=== PATIENT | female | born 1985 | race Caucasian/White ===

== ENCOUNTER 2016-06-26 00:25 | Inpatient (IN) | payer OTHER ==
[~2016-06-26] VITALS: Ht 175.3 cm; Wt 91.2 kg
[2016-06-26] MEDS ORDERED: Carboprost 250 mCg/mL Inj IM ONE (07:14)
[2016-06-26] MEDS ORDERED: OMEP20CA11 PO (09:08)
[2016-06-26] MEDS ORDERED: CHOL5000 PO (09:08)
[2016-06-26] MEDS ORDERED: PREN-148 PO (09:09)
[2016-06-26] MEDS ORDERED: Lactated Ringer's 1,000 ML IV PRN (09:09)
[2016-06-26] MEDS ORDERED: Oxytocin 10 Unit/mL Inj IM PRN (09:10)
[2016-06-26] MEDS ORDERED: Methylergonovine 0.2 mg/mL Inj IM PRN (09:10)
[2016-06-26] MEDS ORDERED: Carboprost 250 mCg/mL Inj IM PRN (09:10)
[2016-06-26] MEDS ORDERED: Oxytocin 30 Units/500 mL LR 30 UNITS in IV Premix 1 EACH IV PRN ×3 (09:10→21:25)
[2016-06-26] MEDS ORDERED: Ondansetron 2 mg/mL 2 mL Inj IVPUSH PRN ×2 (09:10→11:30)
[2016-06-26] MEDS ORDERED: Hemorrhage Kit, Post Partum XX ONE (09:10)
[2016-06-26] MEDS ORDERED: Sodium Chloride LOK Flush 10 mL Syringe IVFLUSH PRN (09:10)
[2016-06-26] MEDS ORDERED: fentaNYL-PF 50 mCg/mL 2 mL Inj IVPUSH PRN (09:10)
[2016-06-26 09:36] LABS: Mean Corpuscular Hemoglobin 27.6 pg (27.0-35.0); Mean Corpuscular Volume 82.5 fL (81-100)
--- NOTE | 2016-06-26 10:06 | PCM.HPOB ---
Subjective Date of Service: Jun 26, 2016 Referring Provider: Admitting Physician: Gabo Cleary MD Primary Care Physician: Smith Long MD Attending Physician: Gaob Cleary MD Chief Complaint induction of labor History of Present History of Present Illness 31 year old female presents to the [facility] for elective induction of labor. Pt is currently at 40 weeks and 6 days with ALEXANDER by LMP of 06/20/16, ALEXANDER by 9 week US 06/23/2016. Pt has had an uncomplicated , pertinent PMH of abnormal PAP with Hx of HPV. OB History: (1), Para (0) Past Medical History Gynecologic History: Abnormal PAP with Hx of HPV Medical History: GERD Surgical History: jaw surgery 2015 - to widen maxilla. Hx Tobacco Use: No Smoking Status: Never Smoker Hx Alcohol Use: No Hx Substance Use: No Past Family History Living Arrangement: with Family Review of Systems Constitutional: Y: Chills, Dizziness, Fever Eyes: Denies: Vision Changes Cardiovascular: Denies: Chest Pain, Palpitations Respiratory: Denies: Cough Gastrointestinal: Denies: Constipation, Diarrhea, Nausea, Vomiting Genitourinary: Denies: Dysuria Neurological: Denies: Confusion, Dizziness, Numbness, Seizures Medications Home medications Omeprazole, Allergy Coded Allergies: No Known Allergies (Unverified , 06/26/16) Exam Vital Signs BP 130/85, HR 89, RR 18, Temp 37.1 3-4cm dialated, 60-70% effaced, -2 station Tirado score 8 Exam FHR 135, moderate variability, category 1 tracing Constitutional: Well-developed, Well-nourished HEENT: Atraumatic, EOMI Lungs: Clear to Auscultation, Normal Air Movement Heart: Exam Unremarkable, Regular Rate/Rhythm Abdomen: Gravid Extremities: Pulses Palpable x4, Edema (1 + pitting lower ext Bilat) Neurological/Psychiatric: Alert, Oriented X3, Cooperative Neuro: Grossly Neurologically Intact Labs/Diagnostics Labs varicella, immune, GBS negative, Rubella immune, RPR - non reactive, GC/ Chlamydia negative Maternal Blood Type: A (positive) Hx Rho(D) Immune Globulin: No Group B Strep Results: Negative Rubella: Immune Lab History: Negative for: Hx Gonorrhea, Hx HIV, Hx Herpes, Hx Syphilis OB Intrapartum Assessment/Plan Assessment 31 female scheduled induction of labor Problems: (1) Elective induction of labor planned Plan: Expectant management, anticipate vaginal delivery today or tomorrow. Status: Acute ICD Code: [id number] Pain Evaluation: Adequate Pain Control RAVEN QUIROZ DO Jun 26, 2016 07:07
[2016-06-26] MEDS: Lactated Ringer's 1,000 ML IV SCH ×3 (11:13→18:37)
[2016-06-26] MEDS ORDERED: Lactated Ringer's 500 ML IV ONE (11:27)
[2016-06-26] MEDS ORDERED: EPHEDrine Sulfate 50 mg/mL Inj IVPUSH PRN (11:30)
[2016-06-26] MEDS ORDERED: fentaNYL 2 mCg/mL-Bupiv 0.125% 100 ML EPIDURAL SCH (11:30)
[2016-06-26] MEDS ORDERED: Atropine 1 mg/10 mL (Code) Syringe IVPUSH PRN (11:30)
--- NOTE | 2016-06-26 11:31 | PCM.HPANE ---
Patient Data Surgeon Admitting Provider:Gabo Cleary MD Attending Provider:Gabo Cleary MD Primary Care Physician:Smith Long MD Other Provider:Leonardo Weston Anesthesia Reason for Visit Induction INDUCTION Ht/WT & BMI Body Mass Index Allergies Coded Allergies: No Known Allergies (Unverified , 06/26/16) Past Anesthesia History Anesthesia History: Denies:: Abnormal Airway, Difficult Intubation Diabetes History Hx Diabetes?: No Medications Hypertension Medication: No Home Meds Incl Beta Mac: No Reported Medications Vit No.124/Iron/FA ( Vitamin Tablet)27 Mg Iron-800 Mcg Tablet1 Each PO DAILY 06/26/16 Cholecalciferol (Vitamin D3) (Vitamin D3)5,000 Unit Capsule5,000 Unit PO 2X weekly 06/26/16 Omeprazole 20 Mg Capsule.dr20 Mg PO DAILY HEARTBURN Ref 0 06/26/16 History History of ENT Problems?: No Hx of Heart Problems?: No Hx of Respiratory Problem?: No Hx Neurologic Problems?: No Hx of GI Problems?: No Hx of Problems?: No HX of Peritoneal Dialysis: No Female Hx: Positive for:: Currently Hx Musculoskeletal Problems?: No Hx of Psycho/Social Problems?: No Hx Alcohol Use: NoHx Substance Use: No Smoking Status: Never Smoker Stop/Bang Treated for Sleep Apnea?: No Do You Have a CPAP Machine?: No Risk Assessment Category Category 1A: Patient has history of documented sleep apnea, and HAS NOT received any narcotic, sedative or anesthesia administration during this stay. Category 1B: Patient has history of documented sleep apnea, and HAS received any narcotic , sedative or anesthesia administration during this stay Category 2: Patient has SUSPECTED Obstructive Sleep Apnea, and HAS received any narcotic , sedative or anesthesia administration during this stay. Category 3: Patient has SUSPECTED Obstructive Sleep Apnea and HAS NOT received narcotic, sedative or anesthesia administration during this stay. Category 4: Outpatient in Procedural Areas with known sleep apnea or who screen positive for High Risk via the STOP/BANG questionnaire. Exam Exam General Appearance: Alert, Oriented X3, Moderate Distress HEENT/AIRWAY: MP 2 Lungs: Clear to Auscultation, Normal Air Movement Heart: Exam Unremarkable, Regular Rate/Rhythm, No Murmurs/Rubs/Gallops Meds/Labs/Diagnostics Admission Meds Current Medications Lactated Ringer's (Lr) 1,000 ml @ 125 mls/hr Q8H IV Last administered on t 11:13; Start 06/26/16 at 10:23 Labs Test 06/26/16 08:00 White Blood Count 10.1th/mm3 (3.8-10.1) Red Blood Count 4.16mil/mm3 (3.90-5.20) Hemoglobin 11.5g/dL (12.0-15.6) Hematocrit 34.3% (35.0-46.0) Mean Corpuscular Volume 82.5fL (81-100) Mean Corpuscular Hemoglobin 27.6pg (27.0-35.0) Mean Corpuscular Hemoglobin Concent 33.5% (32.0-37.0) Red Cell Distribution Width 13.5% (12.3-15.4) Platelet Count 170bil/L (150-400) Plan Impression Patient chart reviewed, patient interviewed and anesthestic plan with risks, benefits, and alternatives discussed, and informed consent obtained. ASA Physical Status: ASA1 Normal Healthy Anesthetic Plan: Epidural Bene/Risks/Altern/Consents: Yes HP Complete Prior to Induction: Yes Gabino Salamanca MD Jun 26, 2016 11:31
[2016-06-26] MEDS ORDERED: Acetaminophen IV 1,000 MG in IV Premix 1 EACH IV ONE (19:55)
[2016-06-27] MEDS: Lactated Ringer's 1,000 ML IV SCH ×4 (00:09→16:33)
[2016-06-27] MEDS ORDERED: Carboprost 250 mCg/mL Inj IM PRN (00:35)
[2016-06-27] MEDS ORDERED: LANOlin HPA 7 Gm Ointment TOPICAL PRN (00:35)
[2016-06-27] MEDS ORDERED: oxyCODONE-Acetamin 5-325 mg Tablet PO PRN (00:35)
[2016-06-27] MEDS ORDERED: Benzocaine (Dermoplast) 20% 60 Gm Spray TOPICAL PRN (00:35)
[2016-06-27] MEDS ORDERED: Oxytocin 10 Unit/mL Inj IM PRN (00:35)
[2016-06-27] MEDS ORDERED: Hemorrhage Kit, Post Partum XX ONE (00:35)
[2016-06-27] MEDS ORDERED: Methylergonovine 0.2 mg/mL Inj IM PRN (00:35)
[2016-06-27] MEDS ORDERED: Witch Hazel-Glycerin Pads TOPICAL PRN (00:35)
[2016-06-27] MEDS ORDERED: Oxytocin 30 Units/500 mL LR 30 UNITS in IV Premix 1 EACH IV PRN (00:35)
--- NOTE | 2016-06-27 01:02 | OP ---
[address] [address] OPERATIVE REPORT PATIENT: CAROL WAGGONER : 1985 MR#: [id number] ADMIT: 06/26/2016 JOB ID: [id number] DATE OF SURGERY: 06/27/2016 SURGEON: PREOPERATIVE DIAGNOSIS(ES): A 31-year-old, 1, para 0, at 41 weeks, induction of labor. POSTOPERATIVE DIAGNOSIS(ES): A 31-year-old, 1, para 1, status post spontaneous vaginal delivery. DELIVERY SUMMARY: The patient is a 31-year-old 1, para 1 now, who came to Labor and Delivery on June 26, 2016, in the morning for induction of labor for post-term . The patient was stable, heart rate was reactive, category 1. On pelvic exam, the cervix was 3-4 cm dilated, 80% effaced, -3 station. Artificial rupture of membrane was done at 10 o'clock in the morning. Amniotic fluid was clear. Pitocin was started shortly after that, was continued for one hour and a half, and was stopped because of frequent contractions. The patient was re-examined at 4 p.m., was 7 cm dilated, 100% effaced, 0 station. Vitals were stable. Next exam at 8 p.m. showed cervical dilation of 9 cm, effacement 100%, station +1. Intrauterine pressure catheter was placed to monitor the adequacy of contractions and Pitocin was restarted. When the rate of Pitocin was 6 milliunits per minute and contractions were adequate patient progressed to full dilation at 11 p.m. She started pushing at 11:10 p.m. and underwent spontaneous vaginal delivery at 12:20 a.m. June 27, 2016. Delivered male with Apgars 7 at one minute and 9 at five minutes. Delayed cord clamping was attempted for 60 seconds. Placenta was delivered four minutes later and was found to be intact with three-vessel cord. Patient had slightly increased hemorrhage that was addressed with administration of 0.2 mg of Methergine IM. Total estimated blood loss was 300 mL. There were no lacerations.
[2016-06-27] MEDS: Sodium Chloride LOK Flush 10 mL Syringe IVFLUSH SCH ×2 (07:51→16:30)
[2016-06-28 07:58] LABS: Mean Corpuscular Hemoglobin 27.6 pg (27.0-35.0); Mean Corpuscular Volume 85.3 fL (81-100)
[2016-06-28] MEDS: Sodium Chloride LOK Flush 10 mL Syringe IVFLUSH SCH (08:30)
[2016-06-28] MEDS: Lactated Ringer's 1,000 ML IV SCH (08:33)
--- NOTE | 2016-06-28 08:38 | PCM.PNOBPP ---
Subjective Date of Service Jun 28, 2016 Post : Spontaneous Vaginal Delivery Subjective 31 year old female G1P(1now) presents to the [facility] for elective induction of labor at 40weeks and 6 days. Pt has had an uncomplicated , pertinent PMH of abnormal PAP with Hx of HPV. Lochia: Light Pain Management: PO pain meds, Good Pain Control Gastrointestinal: Good Appetite, No N/V, Passing Flatus Postop Activity: Ambulating Independently Group B Strep Results: Negative Rubella: Immune Blood Type: A (positive) RH Type: Positive Labs Laboratory Tests 06/28/16 07:42: Exam Vital Signs Vital Signs Bp 117/71, HR 90, RR 17, temp 37.2 Vital Signs: VS reviewed, stable Exam Abdomen: Abdomen appropriately tender Lungs: Clear to Auscultation, Normal Air Movement Heart: Exam Unremarkable, Regular Rate/Rhythm General: Alert, Oriented X3, Cooperative, No Acute Distress OB Post Assessment/Plan Assessment 31 female G1P(1now), s/p . In stable condition, mother and baby recovering well. Problems: (1) Elective induction of labor planned Plan: without complication. Mother and baby recovering well. Discharge home. Status: Resolved Pain Evaluation: Adequate Pain Control Attending Statement The patient was seen and examined together with Dr. Gloria on 06/28/2016 and I agree with the history, exam and plan as outlined in the note above. / MD GABRIELLA Davis GILES A DO Jun 28, 2016 08:03 Enrique Ruiz MD Jun 28, 2016 11:04
--- NOTE | 2016-06-28 08:45 | PCM.DC.OB ---
Obstetrical Discharge Summary Date of Service Jun 28, 2016 Date of hospital admission Jun 26, 2016 at 07:13 Date of Discharge: Jun 28, 2016 Providers Admitting Physician: Gabo Cleary MD Primary Care Physician: Smith Long MD Attending Physician: Gabo Cleary MD Problems: (1) Elective induction of labor planned Plan: without complication. Mother and baby doing well discharge home today. Status: Resolved Brief History and Physical: 31 year old female presents to the [facility] for elective induction of labor. Pt is currently at 40 weeks and 6 days with ALEXANDER by LMP of 06/20/16, ALEXANDER by 9 week US 06/23/2016. Pt has had an uncomplicated , pertinent PMH of abnormal PAP with Hx of HPV. Bp 117/71, HR 90, RR 17, temp 37.2 Abdomen: Abdomen appropriately tender Lungs: Clear to Auscultation, Normal Air Movement Heart: Exam Unremarkable, Regular Rate/Rhythm General: Alert, Oriented X3, Cooperative, No Acute Distress Hospital Course: Pt arrived to [facility] for scheduled induction of labor. Labor progressed normally and Pt gave to a healthy male infant weighing 6343g. EBL 300mL. No lacerations. Pt recovered well, ambulating independently, voiding urine without difficulty. Ascorbic Acid (Vitamin C) 500 Mg Capsule.er 500 MG PO DAILY Prescribed by: RAVEN GLROIA DO Cholecalciferol (Vitamin D3) (Vitamin D3) 5,000 Unit Capsule 5,000 UNIT PO 2X weekly (Reported) Last Taken: 5,000 U on Unknown Date & Time Docusate Sodium (Colace) 100 Mg Capsule 100 MG PO BID Prescribed by: RAVEN GLORIA DO Ferrous Sulfate (Iron) 325 Mg Tablet 325 MG PO DAILY Prescribed by: RAVEN GLORIA DO Ibuprofen (Ibuprofen) 800 Mg Tablet 800 MG PO Q6H PRN PRN For Pain Prescribed by: RAVEN GLORIA DO Omeprazole (Omeprazole) 20 Mg Capsule.dr 20 MG PO DAILY (Reported) Last Taken: 20mg on 06/26/16 0300 Vit No.124/Iron/FA ( Vitamin Tablet) 27 Mg Iron-800 Mcg Tablet 1 EACH PO DAILY (Reported) Last Taken: Unknown Dose on 06/25/16 0800 Discharge Medications: Iron supplement, Vitamin C supplement, Ibuprofen, Colace Disposition Discharge home in stable condition. Follow-up plan Follow up in [facility] in 6 weeks. Discharge Diet: No restrictions Discharge Activity-General: Pelvic Rest for 6 weeks, Try not to overdue, Be up and about, Balance rest and activity, Activity as pain allows, Activity as energy allows Patient instructions Continue to take your vitamin You have been given a prescription for both iron and vitamin C supplements. Please take these as directed. You have been given a prescription for Ibuprofen, please take this as needed for pain, do not exceed 3,200 mg of this medication per day. You have been given a prescription for Colace. Please take this medication as needed for constipation. Be sure to follow up in 6 weeks at [facility]. Pelvic rest for 6 weeks (nothing per vagina including intercourse, tampons) If you have a fever greater than 100.4, please call [facility]. There is always someone union organiser to talk to. If you have an increase in bleeding, call [facility]. If you have a lot of bleeding suddenly, especially if you have symptoms of dizziness & weakness with it, get emergency help. When you see [facility] in two weeks, you will be informed of the results of all the labs. If you start experiencing extreme depression, especially if you feel that you are a danger to yourself or your family, seek emergency help. You have been through a lot -- BE SURE TO TAKE CARE OF YOURSELF. Attending Statement: The patient was seen and examined together with Dr. Gloria on 06/28/2016 and I agree with the history, exam and plan as outlined in the note above. / MD GABRIELLA Davis GILES A DO Jun 28, 2016 08:09 Enrique Ruiz MD Jun 28, 2016 11:06
[2016-06-28] MEDS ORDERED: FERR325T39 PO (08:48)
[2016-06-28] MEDS ORDERED: IBUP800T28 PO (08:48)
[2016-06-28] MEDS ORDERED: DOCU-41 PO (08:48)
[2016-06-28] MEDS ORDERED: ASCO500C6 PO (08:48)
--- NOTE | 2016-06-28 08:50 | PCM.DIOB ---
RAVEN QUIROZ DO 06/28/16 0850: Obstetrical Disch Instruction Date of Service: Jun 28, 2016 Dates of Hospitalization Date of Hospital Admission Jun 26, 2016 at 07:13 Providers Admitting Physician: Gabo Cleary MD Primary Care Physician: Smith Long MD Attending Physician: Gabo Cleary MD Discharge Diagnosis Problems: (1) Elective induction of labor planned Plan: without complication. Discharge home today. Status: Resolved Diet Discharge Diet: No restrictions Activity Discharge Activity-General: Pelvic Rest for 6 weeks, Try not to overdue, Be up and about, Balance rest and activity, Activity as pain allows, Activity as energy allows Dressing and Incisional Care Hygiene: May shower, NO bathtub, hot tub or whirlpool, Perineal care Additional Instructions Discharge Instructions Continue to take your vitamin You have been given a prescription for both iron and vitamin C supplements. Please take these as directed. You have been given a prescription for Ibuprofen, please take this as needed for pain, do not exceed 3,200 mg of this medication per day. You have been given a prescription for Colace. Please take this medication as needed for constipation. Be sure to follow up in 6 weeks at [facility]. Pelvic rest for 6 weeks (nothing per vagina including intercourse, tampons) If you have a fever greater than 100.4, please call [facility]. There is always someone compilation clerk to talk to. If you have an increase in bleeding, call [facility]. If you have a lot of bleeding suddenly, especially if you have symptoms of dizziness & weakness with it, get emergency help. When you see [facility] in two weeks, you will be informed of the results of all the labs. If you start experiencing extreme depression, especially if you feel that you are a danger to yourself or your family, seek emergency help. You have been through a lot -- BE SURE TO TAKE CARE OF YOURSELF. Follow Up Plan Follow Up Plan [facility]. Follow-up appointment: Weeks (6) Call your provider for: Fever or Chills, Shortness of breath, Heavy vaginal bleeding, Heavy bleeding, Epigastric pain, Excessive constipation, Vaginal discomfort, Red painful breasts Enrique Ruiz MD 06/28/16 1106: RAVEN QUIROZ DO Jun 28, 2016 08:50 Enrique Ruiz MD Jun 28, 2016 11:06
[2016-06-28 11:43] VITALS: BP 124/66; PULSE 93; RESP 16
== END 2016-06-28 14:32 | disposition home or self-care (01) | DRG 560 ==
LOC: FBC 07:13
PROVIDERS: ADMIT Legal Medicine; ATTEND Legal Medicine
PROC: 10907ZC Drainage of Amniotic Fluid, Therapeutic from Products of Conception, Via Natural or Artificial Opening (ICD-10-PCS; 2016-06-26)
PROC: 3E033VJ Introduction of Other Hormone into Peripheral Vein, Percutaneous Approach (ICD-10-PCS; 2016-06-26)
PROC: 10E0XZZ Delivery of Products of Conception, External Approach (ICD-10-PCS; principal; 2016-06-27)
DX: O48.0 Post-term pregnancy (principal); Z3A.40 40 weeks gestation of pregnancy; Z37.0 Single live birth

== ENCOUNTER 2016-08-27 10:42 | Day surgery (SDC) | payer OTHER ==
[2016-08-27] VITALS (8 sets, daily range): BP systolic 117–133; BP diastolic 49–81; PULSE 66–77; RESP 14–17; O2SAT 95–99
[~2016-08-27] VITALS: Ht 175.3 cm; Wt 76.0 kg
[~2016-08-27 10:42] MED LIST: ASCO500C6 PO; CHOL5000 PO; DOCU-41 PO; FERR325T39 PO; IBUP800T28 PO; OMEP20CA11 PO; PREN-148 PO
[2016-08-27] MEDS ORDERED: Oxytocin 10 Unit/mL Inj ONE (10:43)
[2016-08-27] MEDS ORDERED: MetoCLOpramide 5 mg/mL 2 mL Inj ONE (10:43)
[2016-08-27] MEDS ORDERED: Dexamethasone 4 mg/mL Inj ONE (10:43)
[2016-08-27] MEDS ORDERED: Propofol 10,000 mCg/mL 20 mL Inj ONE (10:43)
[2016-08-27] MEDS ORDERED: fentaNYL-PF 50 mCg/mL 2 mL Inj ONE (10:43)
[2016-08-27] MEDS ORDERED: Ondansetron 2 mg/mL 2 mL Inj ONE (10:43)
[2016-08-27] MEDS ORDERED: Methylergonovine 0.2 mg/mL Inj ONE (10:43)
[2016-08-27] MEDS ORDERED: Lactated Ringer's 1,000 ML IV ONE ×2 (10:49→18:38)
--- NOTE | 2016-08-27 13:37 | HP ---
[address] [address] HISTORY AND PHYSICAL PATIENT: CAROL WAGGONER : 1985 MR#: [id number] ADMIT: 08/27/2016 JOB ID: [id number] This is a 31-year-old female. She is 1, para 1, two months . She has been having vaginal bleeding after delivery and it never stopped. She had intermittent abdominal cramping. For the last two weeks she has cramping every day. She had no fever. No foul-smelling discharge. She was seen for the 1st visit August 09. At that time, there was no abnormal finding but the bleeding was not stopped. She was seen by Dr. Santos again yesterday and noticed there was a small amount of dark red blood. The uterus was normal in size, nontender. The pelvic ultrasound was ordered and it showed there was about 3 cm mass inside her uterine cavity. Indicated retained products of conception. She was scheduled for a suction D and C for today. ALLERGIES: Patient has no known drug allergies. PAST MEDICAL HISTORY: Patient declined. PAST SURGICAL HISTORY: She had jaw surgery which was not complicated. MEDICATION: She started control pills one week ago. SOCIAL HISTORY: She is not smoking. She drinks alcohol occasionally. Declined drug usage. OBSTETRICAL HISTORY: She is para 1. Normal vaginal delivery on June 27, 2016. GYNECOLOGIC HISTORY: Not complicated. FAMILY HISTORY: Not significant. PHYSICAL EXAMINATION: She is afebrile. Her vitals in normal range. Cardiac: RR, no murmur. Pulmonary: Bilaterally clear. Abdomen soft, nontender. Pelvic examination deferred today. She was examined yesterday by Dr. Santos. I will examine her in OR under anesthesia. Extremities nontender. ASSESSMENT AND PLAN: A 31-year-old female, 1, para 1, two months vaginal bleeding. Suspected retained placenta. 1. I will do suction D and C today. 2. For prolonged bleeding, planning to give prophylactic antibiotics. We will give one dose before procedure and one dose after procedure. 3. Instruct patient to stop her control pills now and she will have no sex and until next period coming back. Will be roughly in about four weeks. 4. Discussed with patient about the finding and the procedure. She understood that the retained placenta could be very tight, adhered to the uterine wall, and also there was calcification noticed by the ultrasound. During the suction D and C, there was the possibility of damage to the endometrium and it may make the future difficult. It may cause placenta adhesion for the future and she understood the risk of perforation of the uterus, which needs further evaluation. She agreed for blood transfusion if it is needed. She understood there is risk of injury to the uterus and also the organs around the uterus, including the bladder, ureters, major vessels, nerves, and bowels. Informed consent signed.
--- NOTE | 2016-08-27 13:41 | HP ---
[address] [address] HISTORY AND PHYSICAL PATIENT: CAROL WAGGONER : 1985 MR#: [id number] ADMIT: 08/27/2016 JOB ID: [id number] CHIEF COMPLAINT: Abnormal uterine bleeding. HISTORY OF PRESENT ILLNESS: This is a 31-year-old G 1, P 1-0-0-1 female who is almost eight weeks from vaginal delivery that occurred on June 27, 2016. She was doing well and had a routine six week follow up. She had no complaints. However, following this, she started to have increased amount of both bright red and dark brown vaginal bleeding, and because of this, she presented back to our clinic two weeks later to discuss her abnormal uterine bleeding. Additionally, she was having some mood issues at that time. However, for her abnormal uterine bleeding, a transvaginal ultrasound was then ordered. This was completed on the morning of August 27 which showed a large amount of retained products of conception. Because of this, she was brought to our clinic where a surgical consent was discussed with the patient prior to proceeding with a suction dilation and curettage in the operating room. PAST MEDICAL HISTORY: Depression. PAST SURGICAL HISTORY: Jaw surgery. OBSTETRICAL HISTORY: She is a G 1, P 1 status post spontaneous vaginal delivery in June of 2016. SOCIAL HISTORY: She denies any tobacco, alcohol or drug use. FAMILY HISTORY: Noncontributory. MEDICATIONS: Include Cymbalta which was prescribed yesterday and the patient has not started taking it. ALLERGIES: No known drug allergies. PHYSICAL EXAMINATION: Objectively she is afebrile. Her vital signs are stable. In general, she is awake, alert, oriented, in no acute distress. She is comfortable in the examination room. Her abdomen is soft, nontender, nondistended. Her extremities show no tenderness or edema. ASSESSMENT: This is a 31-year-old G 1, P 1-0-01 female who is approximately eight weeks presenting with what appears to be retained products of conception on ultrasound. PLAN: At this point in time, I would recommend proceeding with surgical treatment of her abnormal bleeding which would be a suction dilation and curettage. The risks, benefits and alternatives were discussed with her in clinic beforehand including bleeding, infection, damage to bowel or bladder as well as uterine perforation given her recent status. She understands and she elected to proceed. She has had nothing to eat or drink since midnight last night and she will be brought to the operating room, and added on for surgery later today.
--- NOTE | 2016-08-27 13:54 | PCM.HPANE ---
Patient Data Surgeon Admitting Provider: Attending Provider:Carlie Turner MD Primary Care Physician:Smith Long MD Other Provider: Reason for Visit Retained Placenta Dnc Ht/WT & BMI Height (Feet): 5 Height (Inches): 9.00 Weight (Kilograms): 76.000 Body Mass Index 24.00 Allergies Coded Allergies: No Known Allergies (Unverified , 06/26/16) Past Anesthesia History Anesthesia History: Denies:: Abnormal Airway, Difficult Intubation Diabetes History Hx Diabetes?: No Medications Home Meds Incl Beta Mac: No Active Scripts Ferrous Sulfate (Iron)325 Mg [id number] Mg PO DAILY #30 TABLET Prov:RAVEN QUIROZ DO 06/28/16 Ascorbic Acid (Vitamin C)500 Mg Capsule.er500 Mg PO DAILY #30 TABLET Prov:RAVEN QUIROZ DO 06/28/16 Docusate Sodium (Colace)100 Mg [id number] Mg PO BID #60 CAPSULE Prov:RAVEN QUIROZ DO 06/28/16 Ibuprofen 800 Mg [id number] Mg PO Q6H PRN For Pain #60 TABLET Prov:SAIMA QUIROZES Lana DO 06/28/16 Reported Medications Vit No.124/Iron/FA ( Vitamin Tablet)27 Mg Iron-800 Mcg Tablet1 Each PO DAILY 06/26/16 Cholecalciferol (Vitamin D3) (Vitamin D3)5,000 Unit Capsule5,000 Unit PO 2X weekly 06/26/16 Omeprazole 20 Mg Capsule.dr20 Mg PO DAILY HEARTBURN Ref 0 06/26/16 History History of ENT Problems?: No HEENT History: Denies:: Abnormal Airway Difficult Intubation Hx of Heart Problems?: No Hx of Respiratory Problem?: No Hx Neurologic Problems?: No Hx of GI Problems?: No Hx of Problems?: No HX of Peritoneal Dialysis: No Female Hx: Denies:: Currently Hx Musculoskeletal Problems?: No Hx of Psycho/Social Problems?: No Hx Surgeries?: Yes (jaw surgery) Hx Any Other Health Problems?: No Hx Diabetes: No Hx Alcohol Use: NoHx Substance Use: No Smoking Status: Never Smoker Stop/Bang Treated for Sleep Apnea?: No Do You Have a CPAP Machine?: No S-Snoring: Do You Snore Loudly: No T-Tired: feel tired, fatigued: No O-Obsered: Observed not breath: No P-Blood Pressure: treated: No B- Body Mass Index > 35 kg/m2: No A- Age over 50: No N- Neck Large Circumference: No G- Gender Male: No JACKELIN Total Score: 0 JACKELIN Risk Assessment: Low Risk, <3 Yes Risk Assessment Category Category 1A: Patient has history of documented sleep apnea, and HAS NOT received any narcotic, sedative or anesthesia administration during this stay. Category 1B: Patient has history of documented sleep apnea, and HAS received any narcotic , sedative or anesthesia administration during this stay Category 2: Patient has SUSPECTED Obstructive Sleep Apnea, and HAS received any narcotic , sedative or anesthesia administration during this stay. Category 3: Patient has SUSPECTED Obstructive Sleep Apnea and HAS NOT received narcotic, sedative or anesthesia administration during this stay. Category 4: Outpatient in Procedural Areas with known sleep apnea or who screen positive for High Risk via the STOP/BANG questionnaire. Exam Exam Vital Signs Vital Signs Date Time Temp Pulse Resp B/P Pulse Ox O2 Delivery O2 Flow Rate FiO2 08/27/16 10:53 36.5 73 16 133/77 97 Room Air General Appearance: Oriented X3 HEENT/AIRWAY: MP 1 Lungs: Normal Air Movement Heart: Regular Rate/Rhythm Meds/Labs/Diagnostics Admission Meds Current Medications Lactated Ringer's (Lr) 1,000 ml @ ud STK-MED ONCE IV Last administered on t 10:49; Start 08/27/16 at 10:49; Stop 08/27/16 at 10:50; Status DC Plan Impression Patient chart reviewed, patient interviewed and anesthestic plan with risks, benefits, and alternatives discussed, and informed consent obtained. NPO Status: 0800 coffee w cream ASA Physical Status: ASA1 Normal Healthy Anesthetic Plan: GA Bene/Risks/Altern/Consents: Yes HP Complete Prior to Induction: Yes Jermain aTy MD Aug 27, 2016 13:54
[2016-08-27] MEDS ORDERED: Lactated Ringer's 1,000 ML IV SCH (16:28)
[2016-08-27] MEDS ORDERED: Lactated Ringer's 500 ML IV PRN (16:28)
--- NOTE | 2016-08-27 16:28 | PCM.HPANE ---
Patient Data Surgeon Admitting Provider: Attending Provider:Carlie Turner MD Primary Care Physician:Smith Long MD Other Provider: Reason for Visit Retained Placenta Dnc Ht/WT & BMI Height (Feet): 5 Height (Inches): 9.00 Weight (Kilograms): 76.000 Body Mass Index 24.00 Allergies Coded Allergies: No Known Allergies (Unverified , 06/26/16) Past Anesthesia History Anesthesia History: Denies:: Abnormal Airway, Difficult Intubation Diabetes History Hx Diabetes?: No Medications Home Meds Incl Beta Mac: No Active Scripts Ferrous Sulfate (Iron)325 Mg Amvahl393 Mg PO DAILY #30 TABLET Prov:RAVEN QUIROZ DO 06/28/16 Ascorbic Acid (Vitamin C)500 Mg Capsule.er500 Mg PO DAILY #30 TABLET Prov:RAVEN QUIROZ DO 06/28/16 Docusate Sodium (Colace)100 Mg [id number] Mg PO BID #60 CAPSULE Prov:RAVEN QUIROZ DO 06/28/16 Ibuprofen 800 Mg Xuqhpr476 Mg PO Q6H PRN For Pain #60 TABLET Prov:SAIMA QUIROZES Lana DO 06/28/16 Reported Medications Vit No.124/Iron/FA ( Vitamin Tablet)27 Mg Iron-800 Mcg Tablet1 Each PO DAILY 06/26/16 Cholecalciferol (Vitamin D3) (Vitamin D3)5,000 Unit Capsule5,000 Unit PO 2X weekly 06/26/16 Omeprazole 20 Mg Capsule.dr20 Mg PO DAILY HEARTBURN Ref 0 06/26/16 History History of ENT Problems?: No HEENT History: Denies:: Abnormal Airway Difficult Intubation Hx of Heart Problems?: No Hx of Respiratory Problem?: No Hx Neurologic Problems?: No Hx of GI Problems?: No Hx of Problems?: No HX of Peritoneal Dialysis: No Female Hx: Denies:: Currently Hx Musculoskeletal Problems?: No Hx of Psycho/Social Problems?: No Hx Surgeries?: Yes (jaw surgery) Hx Any Other Health Problems?: No Hx Diabetes: No Hx Alcohol Use: NoHx Substance Use: No Smoking Status: Never Smoker Stop/Bang Treated for Sleep Apnea?: No Do You Have a CPAP Machine?: No S-Snoring: Do You Snore Loudly: No T-Tired: feel tired, fatigued: No O-Obsered: Observed not breath: No P-Blood Pressure: treated: No B- Body Mass Index > 35 kg/m2: No A- Age over 50: No N- Neck Large Circumference: No G- Gender Male: No JACKELIN Total Score: 0 JACKELIN Risk Assessment: Low Risk, <3 Yes Risk Assessment Category Category 1A: Patient has history of documented sleep apnea, and HAS NOT received any narcotic, sedative or anesthesia administration during this stay. Category 1B: Patient has history of documented sleep apnea, and HAS received any narcotic , sedative or anesthesia administration during this stay Category 2: Patient has SUSPECTED Obstructive Sleep Apnea, and HAS received any narcotic , sedative or anesthesia administration during this stay. Category 3: Patient has SUSPECTED Obstructive Sleep Apnea and HAS NOT received narcotic, sedative or anesthesia administration during this stay. Category 4: Outpatient in Procedural Areas with known sleep apnea or who screen positive for High Risk via the STOP/BANG questionnaire. Low Risk, <3 Yes Exam Exam Vital Signs Vital Signs Date Time Temp Pulse Resp B/P Pulse Ox O2 Delivery O2 Flow Rate FiO2 08/27/16 10:53 36.5 73 16 133/77 97 Room Air General Appearance: Alert, Oriented X3, Cooperative, No Acute Distress HEENT/AIRWAY: MP 2, Neck Movement (FROM), Mouth Opening (3 FBMO) Lungs: Clear to Auscultation, Normal Air Movement Heart: Exam Unremarkable, Regular Rate/Rhythm, No Murmurs/Rubs/Gallops Meds/Labs/Diagnostics Admission Meds Current Medications Lactated Ringer's (Lr) 1,000 ml @ ud STK-MED ONCE IV Last administered on t 10:49; Start 08/27/16 at 10:49; Stop 08/27/16 at 10:50; Status DC Plan Impression Patient chart reviewed, patient interviewed and anesthestic plan with risks, benefits, and alternatives discussed, and informed consent obtained. NPO Status: 0800 coffee w cream ASA Physical Status: ASA1 Normal Healthy Anesthetic Plan: GA Bene/Risks/Altern/Consents: Yes HP Complete Prior to Induction: Yes Willian Ferguson MD Aug 27, 2016 16:28
[2016-08-27] MEDS ORDERED: fentaNYL-PF 50 mCg/mL 2 mL Inj IVPUSH PRN (16:30)
[2016-08-27] MEDS ORDERED: Atropine 0.4 mg/mL Inj IVPUSH PRN (16:30)
[2016-08-27] MEDS ORDERED: Ondansetron 2 mg/mL 2 mL Inj IVPUSH PRN (16:30)
[2016-08-27] MEDS ORDERED: HYDROmorphone 1 mg/mL Inj IVPUSH PRN (16:30)
[2016-08-27] MEDS ORDERED: Labetalol 5 mg/mL 4 mL Inj IV PRN (16:30)
[2016-08-27] MEDS ORDERED: Phenylephrine 10,000 mCg/mL Inj IVPUSH PRN (16:30)
[2016-08-27] MEDS ORDERED: MetoCLOpramide 5 mg/mL 2 mL Inj IVPUSH PRN ×2 (16:30→17:20)
[2016-08-27] MEDS ORDERED: EPHEDrine Sulfate 50 mg/mL Inj IVPUSH PRN (16:30)
--- NOTE | 2016-08-27 17:17 | PCM.DIGYN ---
Surgical Discharge Instruction Dates of Hospitalization Date of Hospital Admission Providers Admitting Physician: Primary Care Physician: Smith Long MD Attending Physician: Carlie Turner MD Diagnosis at Time of Discharge Diagnosis at time of discharge s/p suction, D&C Post-operative diagnosis s/p suction, D&C Problems: Diet Discharge Diet: No restrictions Activity Discharge Activity-General: Try not to overdue, Be up and about, Balance rest and activity Dressing and Incisional Care Hygiene: May shower, NO bathtub, hot tub or whirlpool Additional Instructions Discharge Instructions Please call office or go to ER if heavy vaginal bleeding, severe abdominal pain , foul smelling discharge, fever more than 100.4 or short of breath Follow Up Plan Follow Up Plan 2 weeks in office with Dr Turner Follow-up Provider (F9): Carlie Turner MD Follow-up appointment: Weeks (2) Call your provider for: Fever, Chills, Shortness of breath, Vomitting, Heavy vaginal bleeding, Increasing pain Carlie Turner MD Aug 27, 2016 17:17
[2016-08-27] MEDS ORDERED: oxyCODONE-Acetamin 5-325 mg Tablet PO PRN (17:20)
--- NOTE | 2016-08-27 18:05 | PCM.ANEP2 ---
Post Anesthesia Evaluation ASA/CMS Post Anesthesia VS in Patient's Normal Range?: Yes Resp Stable; Airway Patent?: Yes CV Function & Hydration Stable: Yes Mental Status Recovered?: Yes Pain control Satisfactory?: Yes N/V Control Satisfactory?: Yes Willian Ferguson MD Aug 27, 2016 18:05
--- NOTE | 2016-08-27 18:05 | PCM.ANEP1 ---
Post Anesthesia Phase 1 PACU Phase 1 Assessment Vital Signs Vital Signs Date Time Temp Pulse Resp B/P Pulse Ox O2 Delivery O2 Flow Rate FiO2 08/27/16 18:02 36.6 66 16 122/69 99 Room Air 08/27/16 18:01 72 17 121/70 96 08/27/16 17:40 75 15 119/66 97 08/27/16 17:25 77 16 118/68 95 08/27/16 17:20 73 15 119/69 97 08/27/16 17:15 37.0 76 14 117/49 96 08/27/16 10:53 36.5 73 16 133/77 97 Room Air Anesthetic Administered: GA Level of Alertness: Awake, talking MCGARRY's with Equal Strength: Yes Pain: No Nausea or Vomiting: No Oxygen Delivery: Simple Mask Lungs: Clear to Auscultation, Normal Air Movement Dermatome Level: Full Sensation Willian Ferguson MD Aug 27, 2016 18:04
--- NOTE | 2016-08-27 19:40 | DIS ---
[address] [address] DISCHARGE SUMMARY PATIENT: CAROL WAGGONER : 1985 MR#: [id number] ADMIT: 08/27/2016 JOB ID: [id number] DIS: 08/27/2016 A 31-year-old female, 1, para one, presented to the office for vaginal bleeding two months after vaginal delivery. Ultrasound showed the retained placenta. Suction D and C was performed today. The procedure was not complicated. Plan is to discharge the patient home today after she is ambulating well, voiding well and if her pain is well controlled. The patient is instructed that she will go back to office in two weeks for followup. She has been instructed that if there is heavy vaginal bleeding, severe abdominal pain, foul-smelling discharge, fever more than 100.4, she will need to call office or go to the ED for evaluation. Motrin 600 mg prescribed 30 pills with no refills and Vicodin 5/325, 30 pills prescribed with no refills.
--- NOTE | 2016-08-27 19:43 | OP ---
[address] [address] OPERATIVE REPORT PATIENT: CAROL WAGGONER : 1985 MR#: [id number] ADMIT: 08/27/2016 JOB ID: [id number] DATE OF SURGERY: 08/27/2016 SURGEON: Carlie Turner MD. PREOPERATIVE DIAGNOSIS(ES): bleeding, retained placenta. POSTOPERATIVE DIAGNOSIS(ES): bleeding, retained placenta. PROCEDURE: Suction dilatation and curettage. This is a 31-year-old female. She is 1, para 1, status post vaginal delivery for two months. Presents to office for continuous vaginal bleeding. Ultrasound showed retained products of conception. Scheduled for suction D and C. I discussed with patient about the risk of infection, bleeding, perforation of the uterus, injury to the organs around the uterus including but not limited to the bladder, ureters, major vessels and nerves. I especially discussed with the patient that this is two months after her vaginal delivery, there was a calcification noticed by ultrasound. There may be increased risk of injury to the endometrium, injury to the uterus. The patient understood and informed consent signed. The patient was the patient was transferred to operating room. After anesthesia was noted to be adequate, she was placed in dorsal lithotomy position. She was prepared and draped in normal sterile fashion. I did the examination under anesthesia and noted her uterus about 8-10 week size, anteverted, soft. Speculum inserted to vagina. The anterior lip of the cervix was grasped by a single-tooth tenaculum. The cervix was still opened easily to place the 10 mm dilator and then the straight 10 mm suction tube inserted to uterus to remove the retained products, and then sharp curettage was performed. At this time, I felt the uterus. It was very soft and she started to have active bleeding, 30 units of Pitocin started for IV infusion and Methergine 0.2 mg was given. Then another around of suction was performed and then the sharp curettage was confirmed of removal of all the products. At this time, bimanual examination was done again. The uterus was well contracted and the bleeding was slowing down. Then all the instruments was cleared from the field. The hemostasis was confirmed. All specimens were sent for Pathology. The blood loss for the procedure was about 300 cc.
--- NOTE | 2016-09-03 16:12 | PATH ---
SURGICAL PATHOLOGY Attending Physician:Carlie Turner MD CASE STATUS: Signed Out * Amended * PATIENT NAME: CAROL WAGGONER PID: [id number] : 1985 DATE COLLECTED:08/27/2016 00:00 SPECIMEN: Products of conception CLINICAL HISTORY: 1). RETAINED PRODUCTS OF CONCEPTION FINAL DIAGNOSIS: Products of Conception: Products of conception identified. ICD10 O02.1 This case was reviewed and interpreted by Dr. Julieth Hoang. The final diagnosis is unchanged. This amendment is issued in order for the report to cross the interface and be available in the hospital electronic medical record. GROSS DESCRIPTION: The specimen is received in one formalin filled container labeled with the patient's name, sublabeled ""retained products of conception" and consists of multiple portions of tissue and blood which aggregate to 6.0 x 6.0 x 2.0 CM. No grossly recognizable parts are observed. Elevator Operator Service sections are submitted in 4 cassettes. 08/28/2016 [facility] ICD-9 CODES: CPT CODES: 1: 83680 AMENDMENT(S): Amended: 09/03/2016 by Ifeoma Potts Reason:Miscellaneous The final diagnosis is unchanged. This amendment is issued in order for the report to cross the interface and be available in the hospital electronic medical record. Previous Signout Date: 08/29/2016 Electronically Signed Out Carol Orellana MD [facility] Pathology [facility], [place] [address] Technical component performed at [facility], [address] [place] [address] [address], [address]
== END 2016-08-27 23:59 | disposition home or self-care (01) ==
LOC: SAS 10:42
PROVIDERS: ATTEND Obstetrics & Gynecology
DX: O72.2 Delayed and secondary postpartum hemorrhage (principal); Z37.0 Single live birth
CPT/HCPCS: 59160; 88305; J1100; J1885; J2210; J2405; J2590; J2765; J3010; J7120